=== PATIENT | female | born 1985 | race Caucasian/White ===

== ENCOUNTER → 2020-06-29 | Outpatient (CLI) | payer MEDICAID ==
[2020-06-29 15:46] LABS: INR 2.1; PROTIME 21.7 Seconds (9.20-11.50)
== END ==
LOC: M.OPS 14:32
PROVIDERS: ATTEND Internal Medicine Cardiovascular Disease
DX: I51.7 Cardiomegaly (principal); E89.2 Postprocedural hypoparathyroidism; Z95.4 Presence of other heart-valve replacement

== ENCOUNTER → 2020-07-13 | Outpatient (CLI) | payer MEDICAID ==
[2020-07-13 12:37] LABS: INR 1.9; PROTIME 19.7 Seconds (9.20-11.50)
== END ==
LOC: M.LAB 12:00
PROVIDERS: ATTEND Internal Medicine Cardiovascular Disease
DX: E89.2 Postprocedural hypoparathyroidism (principal); I51.7 Cardiomegaly; Z95.4 Presence of other heart-valve replacement